=== PATIENT | female | born 2005 | race American Indian/Alaskan Native ===

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

== ENCOUNTER 2025-04-22 14:58 | Emergency (ER) | payer MEDICAID | END 2025-04-22 16:50 | disposition home or self-care (01) | LOC: JP.ED 14:58 | DX: H61.23 Impacted cerumen, bilateral (principal); F17.200 Nicotine dependence, unspecified, uncomplicated | CPT/HCPCS: 99282-25 ==